=== PATIENT | female | born 1990 | race Hispanic/Latino ===

== ENCOUNTER 2019-10-29 12:14 | Observation (INO) | payer OTHER ==
[2019-10-29 13:28] LABS: APPEARANCE,URINE Clear (CLEAR); BILIRUBIN,URINE Negative (NEGATIVE); COLOR,URINE Yellow (YELLOW); GLUCOSE, URINE (UA) Negative (NEGATIVE); KETONES,URINE Negative (NEGATIVE); LEUKOCYTE ESTERASE ,URINE Small (NEGATIVE); NITRATE,URINE Negative (NEGATIVE); OCCULT BLOOD,URINE Negative (NEGATIVE); PH,URINE 7.5 (5.0-8.0); PROTEIN,URINE Negative (NEGATIVE)
[2019-10-29 14:18] LABS: BACTERIA,URINE Few /HPF (None Seen); MUCUS,URINE Few LPF (None Seen); SQUAMOUS EPITHELIAL CELL,UR Moderate /HPF (0-2)
== END 2019-10-29 13:22 | disposition home or self-care (01) ==
LOC: EDH 12:14 → LDH 12:15
PROVIDERS: ADMIT Obstetrics & Gynecology; ATTEND Obstetrics & Gynecology
DX: O26.893 Other specified pregnancy related conditions, third trimester (principal); R10.2 Pelvic and perineal pain; O34.219 Maternal care for unspecified type scar from previous cesarean delivery; Z3A.38 38 weeks gestation of pregnancy
CPT/HCPCS: 81001; 99284; G0378

== ENCOUNTER 2019-10-30 08:37 | Observation (INO) | payer OTHER ==
[~2019-10-30] VITALS: Ht 157.5 cm; Wt 69.9 kg
[2019-10-30 09:44] VITALS: BP 98/59
[2019-10-30 10:37] LABS: AMPHET/METH SCREEN,URINE NEGATIVE (NEGATIVE); BARBITURATE SCREEN, URINE NEGATIVE (NEGATIVE); BENZODIAZEPINES SCREEN,URINE NEGATIVE (NEGATIVE); CANNABINOID SCREEN,URINE NEGATIVE (NEGATIVE); COCAINE SCREEN,URINE NEGATIVE (NEGATIVE); OPIATE SCREEN,URINE NEGATIVE (NEGATIVE); PHENCYCLIDINE SCREEN,URINE NEGATIVE (NEGATIVE)
== END 2019-10-30 10:05 | disposition home or self-care (01) ==
LOC: EDH 08:37 → LDH 08:38
PROVIDERS: ADMIT Obstetrics & Gynecology; ATTEND Obstetrics & Gynecology
DX: O26.893 Other specified pregnancy related conditions, third trimester (principal); R51 Headache; Z3A.38 38 weeks gestation of pregnancy
CPT/HCPCS: 80305; 99284; G0378